=== PATIENT | male | born 1995 | race Caucasian/White ===

== ENCOUNTER 2019-03-26 13:21 | Emergency (ER) | payer BC, OTHER ==
[2019-03-26 13:44] VITALS: BP 155/90
[2019-03-26] MEDS ORDERED: RALT400T PO (13:45)
[2019-03-26] MEDS ORDERED: ATEN1TAB38 PO (13:45)
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
[2019-03-26 14:18] LABS: ALBUMIN 4.4 g/dL (3.4-5.0); DIRECT BILIRUBIN 0.2 mg/dL (0.0-0.2); TOTAL BILIRUBIN 0.7 mg/dL (0.2-1.0); TOTAL PROTEIN 7.5 g/dL (6.4-8.2)
== END 2019-03-26 13:59 | disposition home or self-care (01) ==
LOC: ER 13:25
DX: Z77.21 Contact with and (suspected) exposure to potentially hazardous body fluids (principal)
CPT/HCPCS: 36415; 80076; 86703; 86705; 86709; 86803; 87340; 99284